=== PATIENT | female | born 1995 | race African-American/Black ===

== ENCOUNTER 2021-10-31 16:59 | Inpatient (IN) | payer OTHER ==
[~2021-10-31] VITALS: Ht 157.5 cm; Wt 84.8 kg
[2021-10-31 18:36] LABS: HEMOGLOBIN 10.3 gm/dl (12.3-15.3); RED BLOOD COUNT 3.6 M/UL (4.00-5.10)
[2021-10-31 20:45] LABS: BUN/CREATININE RATIO 14 (0-10)
[2021-11-01] MEDS ORDERED: ASPIRIN CHEWABL81 MG PO (04:37)
[2021-11-01] MEDS ORDERED: COLACE 100MG C100 MG PO (18:51)
[2021-11-01] MEDS ORDERED: IBUPROFEN600 MG PO (18:51)
[2021-11-02 04:25] LABS: HEMOGLOBIN 10.5 gm/dl (12.3-15.3)
[2021-11-03] MEDS ORDERED: TRANDATE 200 M200 MG PO (11:21)
[2021-11-03] MEDS ORDERED: HYDROCODON-ACE1 EAC4 PO (11:21)
== END 2021-11-03 15:52 | disposition home or self-care (01) | DRG 807 ==
LOC: GENOP 16:59 → OB 19:00
PROVIDERS: Obstetrics & Gynecology; ADMIT Obstetrics & Gynecology
PROC: 10E0XZZ Delivery of Products of Conception, External Approach (ICD-10-PCS; principal; 2021-10-31)
PROC: 4A1HXCZ Monitoring of Products of Conception, Cardiac Rate, External Approach (ICD-10-PCS; 2021-10-31)
PROC: 10H073Z Insertion of Monitoring Electrode into Products of Conception, Via Natural or Artificial Opening (ICD-10-PCS; 2021-10-31)
PROC: 10H07YZ Insertion of Other Device into Products of Conception, Via Natural or Artificial Opening (ICD-10-PCS; 2021-10-31)
PROC: 4A1HXCZ Monitoring of Products of Conception, Cardiac Rate, External Approach (ICD-10-PCS; 2021-10-31)
PROC: 3E033VJ Introduction of Other Hormone into Peripheral Vein, Percutaneous Approach (ICD-10-PCS; 2021-10-31)
DX: O13.4 Gestational [pregnancy-induced] hypertension without significant proteinuria, complicating childbirth (principal); Z37.0 Single live birth; O24.420 Gestational diabetes mellitus in childbirth, diet controlled; Z20.822 Contact with and (suspected) exposure to COVID-19; Z28.310 Unvaccinated for COVID-19; Z3A.37 37 weeks gestation of pregnancy; O99.824 Streptococcus B carrier state complicating childbirth; Z83.3 Family history of diabetes mellitus; Z82.49 Family history of ischemic heart disease and other diseases of the circulatory system; Z82.0 Family history of epilepsy and other diseases of the nervous system
CPT/HCPCS: 36415; 80053; 81001; 82570; 82800; 82962; 83615; 83735; 84156; 84550; 85014; 85018; 85025; J0360; J0610; J2590; J3475